=== PATIENT | male | born 1980 | race Caucasian/White ===

== ENCOUNTER 2016-07-21 16:08 | Emergency (ER) | payer BC ==
[2016-07-21 18:02] VITALS: BP 151/96
[2016-07-21] MEDS ORDERED: SODIUM BICARBONATE 4.2% INJECT ONE ×2 (18:30→18:51)
[2016-07-21] MEDS ORDERED: LIDOCAINE 1% INJECT ONE ×2 (18:30→18:51)
[2016-07-21] MEDS ORDERED: Lidocaine 1% 20 ML MDV INJECT ONE (18:52)
--- NOTE | 2016-07-21 19:23 | EDM.PDOC ---
ED HPI GI/ABDOMINAL - General Chief Complaint: Abdominal Pain Stated Complaint: HERNIA PICKED UP [employer] Time Seen by Provider: 07/21/16 18:30 Source: Reports: Patient - History of Present Illness INITIAL COMMENTS - FREE TEXT/NARRATIVE: 36 year old male presents today with pain to right groin. He reports pain and redness for 2 to 3 days. He reports acute onset. He denies fever, chills or change in bowel and bladder function. Symptom Onset Date: 07/18/16 Timing/Duration: Reports: Day(s): Location: other (Right pubis) Quality: Reports: ache, throbbing Severity: moderate Context: Reports: other (Abscess) Treatment(s) [employer]: Reports: Acetaminophen - Related Data Allergies/ADRs: Allergies Allergy/AdvReac Type Severity Reaction Status Date / Time Penicillins Allergy Rash Verified 07/21/16 18:15 Home Meds: Home Meds Ibuprofen [Motrin] 600 mg PO PRN 07/21/16 [History] Past Medical History - Past Health History Medical/Surgical History: Denies Medical/Surgical History Gastrointestinal History: Reports: Other (see below) Other Gastrointestinal History: qquestion R hernia Social & Family History - Tobacco Use Smoking Status *Q: Current Every Day Smoker Years of Tobacco use: 23 Packs/Tins Daily: 1 - Caffeine Use Caffeine Use: Reports: Coffee - Alcohol Use Days Per Week of Alcohol Use: 2 Number of Drinks Per Day: 2 Total Drinks Per Week: 4 - Recreational Drug Use Recreational Drug Use: No ED ROS GENERAL - Review of Systems Review Of Systems: See Below Constitutional: Reports: no symptoms. Denies: fever, chills, malaise, weakness Respiratory: Reports: No Symptoms. Denies: Shortness of Breath, Wheezing, Cough Cardiovascular: Reports: No symptoms. Denies: Chest pain, Lightheadedness, Palpitations GI/Abdominal: Reports: No symptoms. Denies: Abdominal pain, Black stool, Bloody stool, Constipation, Diarrhea, Nausea, Vomiting : Reports: no symptoms. Denies: incontinence, pain, urgency Musculoskeletal: Reports: no symptoms. Denies: muscle pain Skin: Reports: erythema, other (abscess to right pubis) Neurological: Reports: No Symptoms Hematologic/Lymphatic: Reports: no symptoms Immunologic: Reports: no symptoms ED EXAM, GI/ABD - Physical Exam Exam: See Below Exam Limited By: No limitations General Appearance: alert, WD/WN, no apparent distress Respiratory/Chest: no respiratory distress, lungs clear, normal breath sounds, no accessory muscle use, chest non-tender Cardiovascular: normal peripheral pulses, regular rate, rhythm, no rub GI/Abdominal: normal bowel sounds, soft, non tender, no organomegaly, no distention, no abnormal bruit, no mass, other (No evidence of umbilical, inguinal or scrotal hernia. Noted abscess to right pubis, 2.5cm in size, small area of fluctuance, pain and erythema) (Male) Exam: No hernia, Normal inspection, Circumcised, Other (abscess to right pubis as described. ). No: Hernia, Inguinal lymphadenopathy, Penile lesions, Scrotal swelling, Scrotum tenderness (L) Neurological: alert, oriented, normal cognition, normal gait, no motor/sensory deficits Skin Exam: Warm, Erythema, Other (Abscess to right pubis) Lymphatic: no adenopathy ED ABDOMINAL/GI PROCEDURES - Additional/Other Procedure(s) Procedure(s) (Free Text): I&D to right pubis with use of betadine and lidocaine 1% 15ml injection to site. Small incision completed with minimal purulent drainage. Culture completed. Area cleansed with normal saline, gauze and ABD. Course - Vital Signs Text/Narrative:: Patient tolerated procedure well. He was provided instructions for care of abscess, instructed to return in 24 hours with any worsening of symptoms to the ER or clinic. Complete all antibiotic as directed. Last Recorded V/S: Last Vital Signs Temp 36.4 C 07/21/16 18:22 Pulse 78 07/21/16 18:22 Resp 16 07/21/16 18:22 BP 151/96 H 07/21/16 18:22 Pulse Ox 99 07/21/16 18:01 - Orders/Labs/Meds Meds: Medications Discontinued Medications Generic Name Dose Route Start Last Admin Trade Name Danette PRN Reason Stop Dose Admin Lidocaine HCl 20 ml 07/21/16 18:52 07/21/16 19:03 Xylocaine 1% INJECT 07/21/16 18:53 20 ml ONETIME ONE Administration Lidocaine/Sodium Bicarbonate 20 ml 07/21/16 18:51 07/21/16 19:03 Buffered Lidocaine 1% INJECT 07/21/16 18:52 Not Given ONETIME ONE Departure - Departure Time of Disposition: 19:18 Disposition: Home, Self-Care 01 Condition: good Clinical Impression: Abscess Forms: ED Department Discharge Additional Instructions: Wound care as directed. Keep area clean and dry. Take Antibiotic as directed, ibuprofen for pain with use of hydrocodone as needed. Return to ER or clinic in 24 hours for any worsening of symptoms.
== END 2016-07-21 19:40 | disposition home or self-care (01) ==
LOC: JP.ED 16:08
DX: L02.214 Cutaneous abscess of groin (principal); F17.210 Nicotine dependence, cigarettes, uncomplicated; Z88.0 Allergy status to penicillin
CPT/HCPCS: 10060; 87070; 87077; 87186; 87205; 99283-25

== ENCOUNTER 2023-05-12 16:18 | Emergency (ER) | payer BC ==
[2023-05-12 17:21] VITALS: BP 135/93; PULSE 79
[2023-05-12 17:39] LABS: BASOPHILS ABSOLUTE AUTO 0.06 K/uL (0.00-0.10); BASOPHILS PERCENT AUTO 0.9 % (0.1-1.3); EOSINOPHILS ABSOLUTE AUTO 0.37 K/uL (0.00-0.40); EOSINOPHILS PERCENT AUTO 5.3 % (0.0-5.4); HEMATOCRIT 40.6 % (38.4-49.7); HEMOGLOBIN 13.6 g/dL (12.9-16.9); IMMATURE GRAN PERCENT AUTO 0.3 % (0.0-0.7); LYMPHOCYTES ABSOLUTE AUTO 1.87 K/uL (0.8-3.3); MEAN CORPUSCULAR HEMOGLOBIN 28.9 pg (31.6-35.5); MEAN CORPUSCULAR HGB CONC 33.5 g/dL (31.6-35.5); MEAN CORPUSCULAR VOLUME 86.2 fL (81.4-99.0); MONOCYTES ABSOLUTE AUTO 0.66 K/uL (0.20-0.90); MONOCYTES PERCENT AUTO 9.5 % (3.3-12.6); NEUTROPHILS ABSOLUTE AUTO 3.94 K/uL (1.0-7.6); PLATELET COUNT,PLT 292 K/uL (130-375); RED BLOOD CELL COUNT 4.71 M/uL (4.14-5.76); WHITE BLOOD CELL COUNT,WBC 6.9 K/uL (3.2-11.0)
[2023-05-12 17:40] LABS: IMMATURE GRAN ABSOLUTE AUTO 0.02 K/uL (0.00-0.23)
[2023-05-12 17:59] LABS: PROTHROMBIN TIME 10.2 sec (9.2-10.6); PTT,PARTIAL THROMBOPLSTIN TIME 27.2 sec (21.8-27.3)
== END 2023-05-12 18:14 | disposition home or self-care (01) ==
LOC: JP.ED 16:18
DX: M79.661 Pain in right lower leg (principal); M25.561 Pain in right knee; Z88.0 Allergy status to penicillin
CPT/HCPCS: 36415; 85025; 85610; 85730; 86140; 99283